=== PATIENT | female | born 1965 | race Caucasian/White ===

== ENCOUNTER → 2019-08-21 | Outpatient (CLI) | payer BC | END | disposition home or self-care (01) | LOC: LAB SHORT 09:10 → LAB 09:10 | DX: L08.9 Local infection of the skin and subcutaneous tissue, unspecified (principal) | CPT/HCPCS: 87070; 87075; 87205 ==

== ENCOUNTER 2024-10-13 11:43 | Day surgery (SDC) | payer BC ==
[~2024-10-13] VITALS: Ht 174 cm; Wt 73.0 kg
[2024-10-13] VITALS (8 sets, daily range): BP systolic 90–109; BP diastolic 57–77
[~2024-10-13 11:43] MED LIST: Flonase 0.05% N16 GM; Lactated Ringer's 1,000 ML IV SCH; PROG100
[2024-10-13] MEDS ORDERED: IMITREX100 MG PO (11:58)
[2024-10-13] MEDS ORDERED: propofoL 20 ML IV ONE (12:07)
[2024-10-13] MEDS ORDERED: FentaNYL Citrate 50 MCG/ML 2 ML Injection ONE (12:11)
--- NOTE | 2024-10-13 12:16 | NUR ---
History, Chart, Medications and Allergies reviewed before start of procedure. Patient up to Ambulate independently. Gait steady. Pre-Op teaching done. Pt verbalizes understanding. Patient confirms NPO status and agrees with scheduled surgery. Patient reports completing Chlorhexadine shower X2 prior to admission to hospital. Lungs clear T/O to Auscultation. Patient States Post-Procedure ride home has been arranged.
[2024-10-13] MEDS ORDERED: Dexamethasone Sod Phos 10 MG/ML 1ML VIAL ONE (12:28)
[2024-10-13] MEDS ORDERED: Ondansetron HCl 2 MG / ML 2ML Vial IV PRN ×2 (12:40→13:10)
[2024-10-13] MEDS ORDERED: Ondansetron HCl 2 MG / ML 2ML Vial ONE (12:46)
[2024-10-13] MEDS ORDERED: HYDROcodone 5-APAP 325 TAB PO PRN (13:10)
--- NOTE | 2024-10-13 14:06 | NUR ---
Discharge instructions reviewed with patient. Patient verbalizes understanding. Copy given to patient to take home. Rosita-pad with scant drainage. Patient States Post-Procedure ride home has been arranged. Discharged via wheelchair to private car for ride home.
== END 2024-10-13 14:05 | disposition home or self-care (01) ==
LOC: ORSCMMR 11:43 → ORD 13:00 → ORSCMMR 14:05 → ORSCSDS 10-27 12:00
PROVIDERS: Obstetrics & Gynecology
PROC: 0UDB8ZX Extraction of Endometrium, Via Natural or Artificial Opening Endoscopic, Diagnostic (ICD-10-PCS; principal; 2024-10-13 13:00)
DX: N95.0 Postmenopausal bleeding (principal); R93.89 Abnormal findings on diagnostic imaging of other specified body structures; N84.0 Polyp of corpus uteri
CPT/HCPCS: 88305; J1100; J2405; J2704; J3010; J7120